=== PATIENT | male | born 1950 | race Caucasian/White ===

== ENCOUNTER 2023-03-10 04:08 | Emergency (ER) | payer OTHER, BC, SELFPAY ==
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
--- NOTE | ~2023-03-10 | CT_ITS ---
Noncontrast CT scan of the cervical spine Technique: Multiple contiguous axial [address] images of the cervical spine were obtained and rec onstructed in 2D sagittal and coronal planes on the acquisition scanner. Dose reduction technique was used on this scan by utilizing automated exposure control, adjustment of the mA and/or kV according to patient size. The dose-length product (DLP) was 421.59 mGy-cm. Clinical History: Pain Findings: No fractures or dislocations. There is moderate to advanced degenerative disc narrowing at C4-C5 and C5-C6, with mild degenerative disc changes C6-C7. There is left facet arthropathy at C3-C4 with left neural foraminal narrowing. There is mild disc ost eophyte complex at C4-C5 with probable minimal bilateral neural foraminal narrowing. There is disc os teophyte complex at C5-C6, with mild bilateral neural foraminal narrowing. There is probable left yayo ral foraminal narrowing at C6-C7. No prevertebral soft tissue swelling. Impression: No fracture or subluxation of the cervical spine. Mild degenerative spondylosis, as above. Reviewed, dictated and finalized at [facility]. E SPECIALIST Impression: No fracture or subluxation of the cervical spine. Mild degenerative spondylosis, as above.
[2023-03-10 04:17] VITALS: BP 185/78; PULSE 68; RESP 18; TEMP 36.7; O2SAT 100
[2023-03-10] MEDS: TETANUS,DIPHTHERIA,AC PERTUSSIS ADULT (0.5 ML) BOOSTRIX IM (05:16)
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
== END 2023-03-10 07:05 | disposition home or self-care (01) ==
PROVIDERS: Emergency Provider Emergency Medicine
DX: S16.1XXA Strain of muscle, fascia and tendon at neck level, initial encounter (principal); S00.81XA Abrasion of other part of head, initial encounter; Z23 Encounter for immunization; V49.40XA Driver injured in collision with unspecified motor vehicles in traffic accident, initial encounter
CPT/HCPCS: 70450; 72125; 90471; 90715; 99284